=== PATIENT | male | born 1945 ===

== ENCOUNTER → 2022-05-27 09:24 | Outpatient (POV) | payer MEDICARE, BC, SELFPAY ==
[2022-05-27 10:11] VITALS: BP 121/60; PULSE 64; RESP 20; O2SAT 98; BMI 45.4
--- NOTE | 2022-05-27 10:32 | EXP.PAIN.OV ---
HPI Data of Consult Patient: new to practice Consult date: 05/27/22 Requesting Physician: Jackie Story APRN Primary Care Provider: Debbie Coombs Consult Narrative Reason for consult: Low back pain, bilateral leg pain History of present illness: Mr. Lopez is a 76 year old male who presents today as a new patient. He is a referral from Dr. Goodrich office. Today he rates his pain a 8 out of 10. Patient states he has chronic low back pain that radiates into his bilateral lower extremities. 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 Patient states that he did start getting his first injections around 2000 and has progressively worsened over time. He does state it goes into his bilateral lower extremities with his left being his worst side. He does describe this as a dull ache that is worse with increased activity. Patient states it does affect his ability to perform activities of daily living such as cooking or cleaning or even simply shaving in the morning while he is getting ready. He states he does have to take multiple breaks in order to get some relief. Patient states that his epidurals in the past have helped some however they have not been as effective over time. Patient was previously prescribed Lortabs from Dr. Salazar office however he retired and this medication was discontinued. Patient does take pregabalin 300 mg twice a day that is prescribed by his primary care doctor. Patient denies any side effects from this medication. He has also tried [id number] Tylenol and ibuprofen along with heat and ice and topical such as IcyHot and Biofreeze with no additional relief. Patient has had physical therapy in the past that did not provide any additional relief. Patient states he continues to try and do exercise and activities at home for longer than 6 weeks however he has not had any additional relief. Patient does state he frequently gets worsening pain in his feet as well as edema. His Michael is [id number]. Its been reviewed and appropriate. CC: Jackie Story APRN [facility] Disclaimer: The information contained in this section may have been updated after the patient was seen, as this information can be updated by other users. Medical History (Updated 05/27/22 @ 10:35 by Jackie Story APRN) Anxiety Cancer Diabetes GERD (gastroesophageal reflux disease) Hernia HLD (hyperlipidemia) HTN (hypertension) Hypothyroidism Jaw fracture Social History (Updated 05/27/22 @ 10:17 by Becky Patel RN) Smoking Status: Never smoker alcohol intake: never current occupational status: retired Travel in the last 8 weeks: None Review of Systems Review of Systems Review of systems:: pertinent systems reviewed and negative unless documented below Review of systems (narrative): Review of Systems: General: No recent weight changes, no fever, no sleep disturbances Respiratory: No cough, no shortness of air, no recurring pulmonary infections Cardiovascular/peripheral vascular: No chest pain, no palpitations, no edema, no shortness of breath Gastrointestinal: No new onset incontinence, normal bowel movements reported Genitourinary: No new onset incontinence Musculoskeletal: Low back pain, leg pain Psychiatric: [Normal mood/affect] Neurological: [Denies weakness in extremities], [denies balance issues] Meds Home Medications and Allergies Home Medications Medication Instructions Recorded Confirmed Type albuterol sulfate 90 mcg/actuation 2 puff inhalation NEEDED PRN 05/27/22 05/27/22 History aerosol inhaler (Ventolin HFA) BREATHING amlodipine 5 mg tablet 5 mg PO DIRECTED BLOOD PRESSURE 05/27/22 05/27/22 History atorvastatin 40 mg tablet 40 mg PO DAILY Cholesterol 05/27/22 05/27/22 History clonazepam 2 mg tablet 2 mg PO DIRECTED Anxiety 05/27/22 05/27/22 History clopidogrel 75 mg tablet 75 mg PO DAILY Blood thinner 05/27/22 05/27/22 History levo
== END | disposition home or self-care (01) ==
PROVIDERS: PCP Family Medicine; Visit Provider Nurse Practitioner Family
DX: M51.16 Intervertebral disc disorders with radiculopathy, lumbar region (principal); M47.26 Other spondylosis with radiculopathy, lumbar region; G89.4 Chronic pain syndrome; M79.604 Pain in right leg; M79.605 Pain in left leg
CPT/HCPCS: 99202; G0463